=== PATIENT | female | born 1970 | race Caucasian/White ===

== ENCOUNTER 2019-04-09 17:52 | Emergency (ER) | payer SELFPAY ==
[~2019-04-09] VITALS: Ht 160 cm; Wt 86.0 kg
[2019-04-09 18:00] VITALS: BP 107/56
[2019-04-09] MEDS ORDERED: HYDROcodone/APAP 5/325MG 1 TAB TABLET PO ONE (18:30)
--- NOTE | 2019-04-09 18:30 | PHYS DOC ---
Past History Past Medical History: No Pertinent History, Other Past Surgical History: Cholecystectomy, Other Smoking: Non-smoker Alcohol Use: None Drug Use: None Adult General Chief Complaint Chief Complaint: HIP PAIN HPI HPI Patient is a 48-year-old female presents with left hip pain. She slipped down several stairs landing on her buttocks at approximately noon today. She was taken to [facility] where she had x-rays performed and was told there was nothing wrong. Patient still has severe pain and so presents to the emergency department for or a second opinion. Increased pain with movement. No significant relief with the medication administered by EMS. No loss of bowel or bladder control. No head injury. She is able to ambulate but with severe pain. Pain is moderate at rest, severe with movement and ambulation. No radiation of the discomfort. No previous history of hip injury.[] Review of Systems Review of Systems Constitutional: Denies fever or chills [] Eyes: Denies change in visual acuity, redness, or eye pain [] HENT: Denies nasal congestion or sore throat [] Respiratory: Denies cough or shortness of breath [] Cardiovascular: No chest pain or palpitations[] GI: Denies abdominal pain, nausea, vomiting, bloody stools or diarrhea [] : Denies dysuria or hematuria [] Musculoskeletal: Denies back pain, see history of present illness[] Integument: Denies rash or skin lesions [] Neurologic: Denies headache, focal weakness or sensory changes [] Endocrine: Denies polyuria or polydipsia [] All other systems were reviewed and found to be within normal limits, except as documented in this note. Allergies Allergies Allergies Coded Allergies Type Severity Reaction Last Updated Verified No Known Drug Allergies 04/09/19 No Physical Exam Physical Exam Constitutional: Well developed, well nourished, no acute distress, non-toxic appearance. [] HENT: Normocephalic, atraumatic, bilateral external ears normal, oropharynx m oist, no oral exudates, nose normal. [] Eyes: PERRLA, EOMI, conjunctiva normal, no discharge. [] Neck: Normal range of motion, no tenderness, supple, no stridor. [] Cardiovascular:Heart rate regular rhythm, no murmur [] Lungs & Thorax: Bilateral breath sounds clear to auscultation [] Abdomen: Bowel sounds normal, soft, no tenderness, no masses, no pulsatile masses. Pelvis is stable in 3 planes[] Skin: Warm, dry, no erythema, no rash. [] Back: No tenderness, no CVA tenderness. [] Extremities: Left hip has diffuse tenderness. Decreased active range of motion secondary to pain. She has tenderness in the left femur with axial compression. No left knee tenderness. Full active range of motion of the left knee. She is d istally neurovascularly intact. The other 3 extremities show: No tenderness, no cyanosis, no clubbing, ROM intact, no edema. [] Neurologic: Alert and oriented X 3, normal motor function, normal sensory function, no focal deficits noted. [] Psychologic: Affect normal, judgement normal, mood normal. [] Current Patient Data Vital Signs Vital Signs Date Time Temp Pulse Resp B/P (MAP) Pulse Ox O2 Delivery O2 Flow Rate FiO2 04/09/19 18:00 98.5 66 18 96 Room Air EKG EKG [] Radiology/Procedures Radiology/Procedures ROCEDURE: CT ABDOMEN PELVIS WO CONTRAST INDICATION: Left hip pain after a fall COMPARISON: None. TECHNIQUE: Axial CT images obtained through the abdomen and pelvis without contrast. Limited assessment of solid organ structures and vasculature secondary to lack of intravenous contrast.. One or more of the following individualized dose reduction techniques were utilized for this examination: 1. Automated exposure control; 2. Adjustment of the mA and/or kV according to patient size; 3. Use of iterative reconstruction technique. FINDINGS: Mild linear opacities at lower lungs could be scarring or atelectasis. Abdominal aorta is not aneurysmal. Postcholecystectomy changes. No peripancreatic fluid collection. No perisplenic hemorrhage. No hydronephrosis. Right renal cystic lesion measuring approximately 13 mm. Urinary bladder is partially distended. Uterus is prominent in size. Appendix measures up to about 6 mm. No dilated loops of bowel to suggest obstruction. No definite left hip fracture. IMPRESSION: 1. No definite left hip fracture. 2. Limited assessment for solid organ injury secondary to lack of intravenous contrast but definite intra-abdominal hemorrhage is not seen.[] Course & Med Decision Making Course & Med Decision Making Pertinent Labs and Imaging studies reviewed. (See chart for details) ED course: Patient arrived, was placed in bed, and tolerated exam well. She was transported to and from [place] with any complications. She was given pain medicine while in the emergency department which didn't improve her pain. After the return of the imaging findings, these were discussed with the patient voiced understanding. All questions were answered. She was discharged in improved condition. Medical decision making: There is no evidence of a fracture or dislocation. No evidence of neurologic or vascular injury.[] Dragon Disclaimer Dragon Disclaimer This electronic medical record was generated, in whole or in part, using a voice recognition dictation system. Departure Departure: Impression: Primary Impression: Contusion of left hip Disposition: HOME, SELF-CARE Condition: IMPROVED Referrals: PCP,NO (PCP) Patient Instructions: Contusion Additional Instructions: Follow-up with your regular doctor in 2 days. If you do not have regular doctor list of local clinics will be provided for you. Return to the ER if worsening pain or any other concerns. Scripts Meloxicam (MELOXICAM) 7.5 Mg Tablet 7.5 MG PO DAILY for PAIN, #20 TAB Prov: GUICHO ESTRADA DO 04/09/19 Problem Qualifiers Primary Impression: Contusion of left hip Encounter type: initial encounter Qualified Codes: S70.02XA - Contusion of left hip, initial encounter GUICHO ESTRADA DO Apr 09, 2019 18:30
--- NOTE | 2019-04-09 19:58 | RAD ---
INDICATION: Left hip pain after a fall COMPARISON: None. TECHNIQUE: Axial CT images obtained through the abdomen and pelvis without contrast. Limited assessment of solid organ structures and vasculature secondary to lack of intravenous contrast.. One or more of the following individualized dose reduction techniques were utilized for this examination: 1. Automated exposure control; 2. Adjustment of the mA and/or kV according to patient size; 3. Use of iterative reconstruction technique. FINDINGS: Mild linear opacities at lower lungs could be scarring or atelectasis. Abdominal aorta is not aneurysmal. Postcholecystectomy changes. No peripancreatic fluid collection. No perisplenic hemorrhage. No hydronephrosis. Right renal cystic lesion measuring approximately 13 mm. Urinary bladder is partially distended. Uterus is prominent in size. Appendix measures up to about 6 mm. No dilated loops of bowel to suggest obstruction. No definite left hip fracture. IMPRESSION: 1. No definite left hip fracture. 2. Limited assessment for solid organ injury secondary to lack of intravenous contrast but definite intra-abdominal hemorrhage is not seen. Electronically signed by: Artemio Lea MD (04/09/2019 7:55 PM) [facility]
[2019-04-09] MEDS ORDERED: MELO7.5T29 PO (20:05)
== END 2019-04-09 20:24 | disposition home or self-care (01) ==
LOC: ER 17:52
DX: S70.02XA Contusion of left hip, initial encounter (principal); W10.8XXA Fall (on) (from) other stairs and steps, initial encounter; Y93.89 Activity, other specified; Y92.89 Other specified places as the place of occurrence of the external cause; Y99.8 Other external cause status
CPT/HCPCS: 74176; 81025; 99284-25